=== PATIENT | male | born 1975 | race Caucasian/White ===

== ENCOUNTER 2019-06-30 09:22 | Emergency (ER) | payer SELFPAY, OTHER ==
[2019-06-30] MEDS: IBUPROFEN 800 MG TAB PO (10:52)
== END 2019-06-30 13:18 | disposition home or self-care (01) ==
LOC: E/R 09:22
DX: S99.911A Unspecified injury of right ankle, initial encounter (principal); V13.4XXA Pedal cycle driver injured in collision with car, pick-up truck or van in traffic accident, initial encounter
CPT/HCPCS: 29515; 73590; 73630; 99283-25

== ENCOUNTER 2019-07-03 12:55 | Emergency (ER) | payer SELFPAY | END 2019-07-03 13:43 | disposition home or self-care (01) | LOC: E/R 13:43 | DX: M79.604 Pain in right leg (principal) | CPT/HCPCS: 99283 ==